=== PATIENT | male | born 1980 | race American Indian/Alaskan Native ===

== ENCOUNTER 2021-05-30 22:42 | Emergency (ER) | payer OTHER ==
[2021-05-30] MEDS ORDERED: SODIUM CHLORIDE 0.9% 1000 ML 1,000 ML IV ONE (23:34)
[2021-05-30] MEDS ORDERED: LORazepam 2 MG/ML VIAL IV ONE (23:34)
--- NOTE | 2021-05-30 23:59 | Event Note ---
ED Screening Note Date of service: 05/30/21 Time: 22:20 ED Screening Note: Patient is a 40-year-old -[place] male with no past medical history but chronic cannabinoid abuse presents to the ED with complaint of palpitations, lightheadedness, dizziness, generalized weakness and fatigue, diaphoresis and dry mouth after chewing cannabis "edibles" and smoking marijuana as well as drinking alcohol about 1 hour ago. Patient states that he felt lightheaded soon after smoking marijuana with a pipe and was with a friend who noticed that he was just staring in space without responding. Patient states that he drank a lot of water at home to see if that would help his symptoms but symptoms got worse and he decided come to the ED for evaluation. Patient denies chest pain, shortness of breath, nausea and vomiting, diarrhea, abdominal pain, syncope, seizures, fever and chills or cough and change in vision. This initial assessment/diagnostic orders/clinical plan/treatment(s) is/are subject to change based on patients health status, clinical progression and re- assessment by fellow clinical providers in the ED. Further treatment and workup at subsequent clinical providers discretion. Patient/guardian urged not to elope from the ED as their condition may be serious if not clinically assessed and managed. Initial orders include: CBC, CMP, UA, UDS, blood alcohol, salicylate, acetaminophen
--- NOTE | 2021-05-31 00:19 | Emergency Department Report ---
History of Present Illness - General Chief Complaint: Alcohol Stated Complaint: TEJAL DREW FEELS LIKE PASSING OUT Time Seen by Provider: 05/30/21 23:06 Source: patient Mode of arrival: Ambulatory Limitations: No Limitations - History of Present Illness Initial Comments: Patient is a 40-year-old male who presents emergency room with complaints of palpitations, anxiety accidental overdose. Patient states he was at home and was eating edible marijuana and then forgot he took the edible and smoked a marijuana cigarette and drank some alcohol and became anxious and lightheaded and experienced palpitations. Patient states that his symptoms are worsening. Patient states he feels jittery. Patient states he was just trying to enjoy his evening. Patient states he smokes marijuana frequently. Patient states he drinks alcohol socially. Patient states he did not drink enough water today. Patient states he just got home from the gym. Patient denies recent travel. Patient denies recent international travel. Patient denies exposure to the novel coronavirus. Patient denies sick contacts. Patient denies fever and chills. Patient denies cough. Patient denies diarrhea. Patient denies coming in contact with anybody with symptoms of the n ovel coronavirus. Complaint: accidental overdose -: Sudden Context: Accidental Overdose: wanted to get high Associated Symptoms: palpitations Treatments Prior to Arrival: none - Related Data Allergies Allergy/AdvReac Type Severity Reaction Status Date / Time No Known Allergies Allergy Unverified 05/30/21 22:47 ED Review of Systems ROS: Stated complaint: TEJAL DREW FEELS LIKE PASSING OUT Other details as noted in HPI Constitutional: denies: chills, fever Eyes: denies: eye pain, eye discharge, vision change ENT: denies: ear pain, throat pain Respiratory: denies: cough, shortness of breath, wheezing Cardiovascular: as per HPI, palpitations. denies: chest pain Endocrine: no symptoms reported Gastrointestinal: denies: abdominal pain, nausea, diarrhea Genitourinary: denies: urgency, dysuria Musculoskeletal: denies: back pain, joint swelling, arthralgia Skin: denies: rash, lesions Neurological: denies: headache, weakness, paresthesias Psychiatric: anxiety. denies: depression, auditory hallucinations, visual hallucinations, homicidal thoughts, suicidal thoughts Hematological/Lymphatic: denies: easy bleeding, easy bruising ED Past Medical Hx - Past Medical History Previous Medical History?: No - Surgical History Past Surgical History?: No - Family History Family history: no significant - Social History Smoking Status: Never Smoker Substance Use Type: Alcohol, Marijuana ED Physical Exam - General Limitations: No Limitations General appearance: alert, in no apparent distress - Head Head exam: Present: atraumatic, normocephalic - Eye Eye exam: Present: normal appearance - ENT ENT exam: Present: mucous membranes moist - Neck Neck exam: Present: normal inspection - Respiratory Respiratory exam: Present: normal lung sounds bilaterally. Absent: respiratory distress - Cardiovascular Cardiovascular Exam: Present: regular rate, normal rhythm. Absent: systolic murmur, diastolic murmur, rubs, gallop - GI/Abdominal GI/Abdominal exam: Present: soft, normal bowel sounds - Rectal Rectal exam: Present: deferred - Extremities Exam Extremities exam: Present: normal inspection - Back Exam Back exam: Present: normal inspection - Neurological Exam Neurological exam: Present: alert, oriented X3 - Psychiatric Psychiatric exam: Present: normal affect, normal mood - Skin Skin exam: Present: warm, dry, intact, normal color. Absent: rash ED Course Vital Signs 05/30/21 05/31/21 05/31/21 22:46 02:37 02:46 Temperature 98.2 F Pulse Rate 119 H 70 71 Respiratory 18 15 15 Rate Blood Pressure 151/89 O2 Sat by Pulse 100 98 99 Oximetry 05/31/21 05/31/21 03:00 04:36 Temperature Pulse Rate 69 69 Respiratory 15 Rate Blood Pressure 95/59 O2 Sat by Pulse 100 Oximetry - Reevaluation(s) Reevaluation #1: Patient states his symptoms are improving with fluids. 05/31/21 00:19 Reevaluation #2: Patient states he is feeling much better. Patient states his palpitations have resolved. Patient states he is not anxious. Patient states he is back to normal. Patient states his feeling much better. I discussed all results and clinical findings with patient. I discussed plan of care with patient. Patient agrees with plan of care. Patient is stable for discharge. Patient will be discharged home. Patient given discharge instructions. Patient voiced understanding of discharge instructions. 05/31/21 04:54 ED Medical Decision Making - Lab Data Result diagrams: 05/30/21 23:51 05/30/21 23:51 - EKG Data -: EKG Interpreted by Me EKG shows normal: sinus rhythm, axis, intervals, QRS complexes, ST-T waves Rate: normal - Medical Decision Making Patient is a 40-year-old male who presents emergency room with complaints of anxiety, palpitations and accidental overdose. Patient states he took too much marijuana. Patient states he had an edible marijuana and he smoked a marijuana cigarette and then became anxious and nervous and began having palpitations. Patient states that it was an accident. Patient denied suicidal homicidal ideations. Patient was monitored for many hours. Patient was given fluids and Ativan and the patient's symptoms completely resolved. Patient back to baseline at discharge. Patient had labs done which were essentially unremarkable except for signs of dehydration. Patient given IV fluids in the ER. Patient had an EKG which showed a normal sinus rhythm. I personally reviewed the EKG. Patient stable for discharge. Patient was monitored for many hours. Patient discharged asymptomatic. Patient not require any further emergency medical service. Patient is stable to be discharged home. I discussed all results and clinical findings with patient. I discussed plan of care with patient. Patient agrees with plan of care. Patient is stable for discharge. Patient will be discharged home. Patient given discharge instructions. Patient voiced understanding of discharge instructions. - Differential Diagnosis Palpitations, accidental overdose, dehydration, Critical care attestation.: If time is entered above; I have spent that time in minutes in the direct care of this critically ill patient, excluding procedure time. ED Disposition Clinical Impression: Palpitations, Anxiety Accidental overdose Qualifiers: Encounter type: initial encounter Qualified Code(s): T50.901A - Poisoning by unspecified drugs, medicaments and biological substances, accidental (uninten tional), initial encounter Disposition: 01 HOME / SELF CARE / HOMELESS Is pt being admited?: No Does the pt Need Aspirin: No Condition: Stable Instructions: Palpitations, Managing Anxiety, Adult, Accidental Drug Poisoning, Adult Additional Instructions: Patient to follow-up with primary care in 2 to 3 days. Patient to avoid drug and alcohol use. Patient to rest. Patient to increase water. Patient to return to the ER if condition worsens, changes or new symptoms arise. Referrals: PRIMARY CARE,MD [Primary Care Provider] - 2-3 Days Time of Disposition: 04:58
[2021-05-31 00:38] LABS: Basophils % (Auto) 0.2 % (0.0-1.8); Eosinophils % (Auto) 0.4 % (0.0-4.3); Hemoglobin 14.9 gm/dl (11.8-15.2); Lymphocytes # (Auto) 3.7 K/mm3 (1.2-5.4); Lymphocytes % (Auto) 31.3 % (13.4-35.0); Mean Corpuscular HGB Conc 35 % (32-34); Mean Corpuscular Volume 93 fl (84-94); Monocytes # (Auto) 0.9 K/mm3 (0.0-0.8); Monocytes % (Auto) 7.7 % (0.0-7.3); Platelet Count 233 K/mm3 (140-440); Red Blood Count 4.62 M/mm3 (3.65-5.03); Red Cell Distribution Width 13.6 % (13.2-15.2)
[2021-05-31 00:56] LABS: Alanine Aminotransferase 25 units/L (7-56); Albumin 4.6 g/dL (3.9-5); BUN/Creatinine Ratio 21; Blood Urea Nitrogen 19 mg/dL (9-20); Calcium 10.3 mg/dL (8.4-10.2); Hemolysis Index 156
[2021-05-31 04:41] VITALS: BP 95/59
--- NOTE | 2021-06-03 14:45 | Electrocardiograph Report ---
[facility] Test Date: 2021-05-31 Test Time: 04:25:54 Pat Name: LAMONT PATRICK Department: Room: Gender: M Clinical Quality Manager: : 1980 Requested By: SILVINO LICEA Order Number: [id number] Reading MD: Shaina Lawrence Measurements Intervals [place] Rate: 69 P: 45 AL: 212 QRS: 80 QRSD: 88 T: 65 QT: 384 QTc: 412 Interpretive Statements Sinus rhythm Prolonged AL interval Early repolarization ST segment abnormality No previous ECG available for comparison Electronically Signed On 06-03-2021 14:44:51 EDT by Shaina Lawrence
== END 2021-05-31 05:30 | disposition home or self-care (01) ==
LOC: ED 22:42
DX: T50.901A Poisoning by unspecified drugs, medicaments and biological substances, accidental (unintentional), initial encounter (principal); Y92.89 Other specified places as the place of occurrence of the external cause; R00.2 Palpitations; F41.9 Anxiety disorder, unspecified; F10.20 Alcohol dependence, uncomplicated; F12.90 Cannabis use, unspecified, uncomplicated
CPT/HCPCS: 36415; 80053; 84443; 84484; 85025; 93005; 96361; 96374; 99283; J2060; J7030; 80320; G0480